=== PATIENT | male | born 1985 | race African-American/Black ===

== ENCOUNTER 2017-01-29 10:17 | Inpatient (IN) | payer OTHER ==
--- NOTE | 2017-01-29 10:59 | PDOC ---
Attending Attestation - Resident Resident Name: Coretta Rico - ED Attending Attestation I have performed the following: I have examined & evaluated the patient, The case was reviewed & discussed with the resident, I agree w/resident's findings & plan, Exceptions are as noted - HPI HPI: 01/29/17 11:41 31y M hx of IVDU/heroin use, ?autoimmune hepatic disease, PBC presents with generalized body pain requesting heroin detox, last use was yesterday. Pt denies any n/v, fever/chills, diarrhea, chest pain, sob, cough. GENERAL: The patient is awake, alert, and fully oriented, Nontoxic - in no acute distress. HEAD: Normocephalic, atraumatic. EYES: extraocular movements intact, sclera icteric, conjunctiva clear. ENT: Normal voice, dry mucous membranes. NECK: Normal range of motion, supple LUNGS: Breath sounds equal, clear to auscultation bilaterally. No wheezes, no rhonchi, no rales. HEART: Regular rate and rhythm, normal S1 and S2 without murmur, rub or gallop. ABDOMEN: Soft, nontender, normoactive bowel sounds. No guarding, no rebound. . No CVA tenderness EXTREMITIES: Normal range of motion, no edema. NEUROLOGICAL: No facial assymetry, Normal speech, moving all 4 extremities spontaneously and symmetrically PSYCH: Normal mood, normal affect. SKIN: Warm, Dry, normal turgor, as pt is jaundiced, will check cbc/cmp to eval his liver function if neg will dc to detox 01/29/17 15:45 pts labs reviewed noted for significantly elevated bilirubin/lfts case wa d/w Dr Munoz who recommended transfer to [facility] or tertiary center, however transfer was declined as it was felt workup could be initiated at [facility]. The pt will be admitted for further management and stabilization of his autoimmune hepatitis and PBC stable for med surg admission - Physicial Exam PE: 01/31/17 16:20 see above - Medical Decision Making 01/31/17 16:20 see above
[2017-01-29 11:03] LABS: URINE APPEARANCE SLCLOUDY; URINE BLOOD NEGATIVE (NEGATIVE); URINE COLOR AMBER; URINE GLUCOSE (UA) NEGATIVE (NEGATIVE); URINE KETONE NEGATIVE (NEGATIVE); URINE LEUK ESTERASE NEGATIVE (NEGATIVE); URINE NITRITE NEGATIVE (NEGATIVE); URINE PROTEIN NEGATIVE (NEGATIVE); URINE UROBILINOGEN 4.0 E.U/dl mg/dL (0.2-1.0)
[2017-01-29 11:10] LABS: URINE MARIJUANA THC NEGATIVE ng/ml (CUTOFF=50)
--- NOTE | 2017-01-29 12:48 | PDOC ---
History of Present Illness - General Chief Complaint: Substance Abuse Stated Complaint: DETOX Time Seen by Provider: 01/29/17 10:24 History Source: Patient - History of Present Illness Initial Comments: 01/29/17 12:45 CC: Heroin Withdrawal Patient is a 31 y.o. male with a PMH of HTN, Primary Biliary Cirrhosis and Auto Immune Hepatitis who presents to our ED today c/o of heroin withdrawal and requesting admission to a rehabilitation facility. Patient states he last used heroin early this morning and he usually injects in his arms bilaterally. Patient denies any SiSx of heroin withdrawal including nausea, diaphoresis, abdominal pain or muscle spasms. Patient states he takes Lisinopril and Ursodiol daily however cannot recall the dosages or name the physician who prescribes these medications for him. Past History - Past Medical History Allergies/Adverse Reactions: Allergies Allergy/AdvReac Type Severity Reaction Status Date / Time No Known Allergies Allergy Verified 01/29/17 10:33 Home Medications: Ambulatory Orders Ursodiol 600 mg PO DAILY 01/29/17 HTN: Yes Liver Disease: Yes (auto immune hepatitis) Other medical history: drug abuse heroin - Psycho/Social/Smoking Cessation Hx Anxiety: No Suicidal Ideation: No Smoking History: Never smoked Have you smoked in the past 12 months: No Information on smoking cessation initiated: No Hx Alcohol Use: No Drug/Substance Use Hx: Yes (heroin) Substance Use Type: None Review of Systems - Review of Systems Constitutional: No: Chills, Diaphoresis HEENTM: No: Blurred Vision, Double Vision, Tinnitus, Throat Pain Respiratory: No: Cough, Orthopnea, Shortness of Breath, Wheezing Cardiac (ROS): No: Chest Pain, Lightheadedness, Palpitations ABD/GI: No: Constipated, Diarrhea, Nausea, Vomiting : No: Burning, Dysuria Neurological: No: Headache, Numbness, Tingling, Weakness Psychiatric: No: Anxiety, Depression All Other Systems: Reviewed and Negative *Physical Exam - Vital Signs Last Vital Signs Temp Pulse Resp BP Pulse Ox 98.0 F 82 18 159/96 100 01/29/17 10:19 01/29/17 10:19 01/29/17 10:19 01/29/17 10:19 01/29/17 10:19 - Physical Exam General Appearance: Yes: Nourished, Appropriately Dressed HEENT: positive: Scleral Icterus (R), Scleral Icterus (L), Other Neck: positive: Tender, Supple Respiratory/Chest: positive: Lungs Clear, Normal Breath Sounds Cardiovascular: positive: Regular Rhythm, Regular Rate, S1, S2 Gastrointestinal/Abdominal: positive: Soft Integumentary: positive: Normal Color, Dry, Warm, Other (Last site of heroin insertion on RUE shows ) Neurologic: positive: Fully Oriented, Alert ED Treatment Course - LABORATORY CBC & Chemistry Diagram: 01/29/17 13:23 01/29/17 12:00 - ADDITIONAL ORDERS Additional order review: Laboratory Results 01/29/17 01/29/17 01/29/17 11:42 10:39 10:39 Sodium Cancelled Potassium Cancelled Chloride Cancelled Carbon Dioxide Cancelled Anion Gap Cancelled BUN Cancelled Creatinine Cancelled Creat Clearance w eGFR Cancelled Random Glucose Cancelled Calcium Cancelled Total Bilirubin Cancelled AST Cancelled ALT Cancelled Alkaline Phosphatase Cancelled Total Protein Cancelled Albumin Cancelled Urine Color Jenae Urine Appearance Slcloudy Urine pH 5.0 Urine Protein Negative Urine Glucose (UA) Negative Urine Ketones Negative Urine Blood Negative Urine Nitrite Negative Urine Bilirubin 4.0 Urine Urobilinogen 4.0 e.u/dl Ur Leukocyte Esterase Negative Opiates Screen Positive Methadone Screen Negative Barbiturate Screen Negative Phencyclidine Screen Negative Ur Amphetamines Screen Negative MDMA (Ecstasy) Screen Negative Benzodiazepines Screen Negative Cocaine Screen Negative U Marijuana (THC) Screen Negative 01/29/17 11:42 RBC Cancelled MCV Cancelled MCHC Cancelled RDW Cancelled MPV Cancelled Medical Decision Making - Medical Decision Making 01/29/17 13:15 Patient is a 31 y.o. male with a PMH of PBC, Auto Immune Hepatitis, and Heroin Intoxication who presents to our ED today seeking admission to a rehabilitation facility for Heroin Addition Treatment. On PE, patient's BP is elevated and he has mild scleral icterus B/L. Gastroenterology consult (Dr. Lopez) recommended transfer to [facility] following CMP that showed hyperbilirubinemia (Total 13.0, Direct 10.9) however given that patient had admitted to recent heroin use and presented to our facility seeking admission to detox, patient was refused. Patient was admitted to inpatient medicine service under Dr. Mackenzie. *DC/Admit/Observation/Transfer Diagnosis at time of Disposition: Elevated bilirubin - Discharge Dispostion Condition at time of disposition: Good Admit: Yes - Attestations Physician Attestion: 01/29/17 15:50 I, Dr. Coretta Rico, attest that this document has been prepared under my direction and personally reviewed by me in its entirety. I further attest, that it accurately reflects all work, treatment, procedures and medical decision -making performed by me.
[2017-01-29 12:56] LABS: HIV 1 & 2 AB NEGATIVE; HIV 1 AGp24 NEGATIVE
[2017-01-29 13:09] LABS: ALBUMIN 2.1 g/dl (3.4-5.0); ALK PHOS 822 U/L (45-117); ANION GAP 6 (8-16); CO2 25 mmol/L (21-32); CREATININE 0.9 mg/dL (0.7-1.3); GLUCOSE,RANDOM 89 mg/dL (74-106); SGPT/ALT 130 U/L (12-78); TOT PROT 5.9 g/dl (6.4-8.2)
[2017-01-29 13:21] LABS: BILIRUBIN,DIRECT 10.9 mg/dL (0.0-0.2); SGOT/AST 144 U/L (15-37)
[2017-01-29 14:05] LABS: MCH 28.7 pg (25.7-33.7); MCHC 34.1 g/dl (32.0-35.9); MEAN PLT VOLUME 8.9 fl (7.5-11.1); PLATELET COUNT 288 K/MM3 (134-434); RDW 14.6 % (11.9-15.9); WHITE BLOOD COUNT 7.3 K/mm3 (4.0-10.0)
[2017-01-29] MEDS ORDERED: POTASSIUM CHLORIDE TABS 20 MEQ TABLET.ER (FP) PO ONE (17:09)
[2017-01-29] MEDS ORDERED: POTASSIUM CHLORIDE ORAL LIQUID 20 MEQ/15 ML ONE (17:15)
[2017-01-29 18:59] VITALS: BMI 28.2
[2017-01-29] MEDS: KETOROLAC TROMETHAMINE 30 MG/1 ML VIAL IVPB PRN (20:38)
[2017-01-29 20:48] LABS: PLATELET COMMENT2 NO CLOTTING DETECTED; PLATELET COMMENT3 FEW LARGE PLTS
[2017-01-29 20:50] LABS: ANISOCYTOSIS 1+; HYPOCHROMIA 1+
[2017-01-29] MEDS ORDERED: KETOROLAC TROMETHAMINE 30 MG/1 ML VIAL IM PRN (20:56)
[2017-01-29] MEDS ORDERED: ONDANSETRON 4 MG/2 ML VIAL IVPUSH PRN (21:00)
[2017-01-29] MEDS: URSODIOL 300 MG CAPSULE PO SCH (23:04)
[2017-01-29] MEDS: DEXTROSE 5%-0.45% SALINE 1,000 ML IV SCH (23:04)
[2017-01-29] MEDS: HEPARIN NA (PORCINE) 5,000 UNITS/ML 1ML VIAL SQ SCH (23:05)
[2017-01-30] MEDS: KETOROLAC TROMETHAMINE 30 MG/1 ML VIAL IVPB PRN ×3 (02:41→19:00)
[2017-01-30] MEDS ORDERED: PT OWN MED DRAWER 7, Y5N ONE (09:02)
[2017-01-30] MEDS: URSODIOL 300 MG CAPSULE PO SCH (09:17)
[2017-01-30] MEDS: HEPARIN NA (PORCINE) 5,000 UNITS/ML 1ML VIAL SQ SCH ×2 (09:22→22:18)
[2017-01-30 09:40] LABS: ANION GAP 7 (8-16); CALCIUM 8.9 mg/dL (8.5-10.1); CO2 26 mmol/L (21-32); GLUCOSE,RANDOM 105 mg/dL (74-106); SGOT/AST 135 U/L (15-37); SGPT/ALT 135 U/L (12-78)
[2017-01-30 09:41] LABS: MCH 28.8 pg (25.7-33.7); MCHC 34.1 g/dl (32.0-35.9); MEAN CELL VOLUME 84.7 fl (80-96); PLATELET COUNT 288 K/MM3 (134-434); RDW 14.9 % (11.9-15.9); WHITE BLOOD COUNT 5.5 K/mm3 (4.0-10.0)
[2017-01-30 09:42] LABS: ALK PHOS 873 U/L (45-117); BILIRUBIN,TOTAL 13.5 mg/dL (0.2-1.0); CREATININE 0.9 mg/dL (0.7-1.3)
[2017-01-30 12:26] LABS: PLATELET ESTIMATE ADEQUATE
--- NOTE | 2017-01-30 14:19 | CONSULT ---
Consult Detox [facility] Reason for Current Admission/Consult: Heroin detox Referred by:: Nina Mackenzie MD - History History of Present Illness: 31 y/o man with hx. of heroin dependence is admitted because abnormal liver enzymes. He has a hx. of autoimmune hepatitis. - History Source History Provided By: Patient, Medical Record Limitations to Obtaining History: No Limitations - Alcohol/Substance Use Hx Alcohol Use: No - Current Drug/Alcohol Use Heroin Route: Injection Age of first use: 29 Date of Last Use: 01/29/17 COWS - Scale Resting Pulse: 0= [place] 80 or Below Sweatin= Chills/Flushing Restless Observation: 1= Difficult to Sit Still Pupil Size: 0= Normal to Room Light Bone or Joint Aches: 1= Mild Discomfort Runny Nose/ Eye Tearin= None GI Upset > 30mins: 1= Stomach Cramp Tremor Observation: 1= Tremor [place], Not Seen Yawning Observation: 0= None Anxiety or Irritability: 2=Irritable/Anxious Goose Flesh Skin: 0=Smooth Skin COWS Score: 7 Assessment Plan - Diagnosis (1) Opioid dependence with withdrawal Status: Acute (2) Autoimmune hepatitis Status: Acute - Medication Detox Regimen/Protocol: Methadone
[2017-01-30] MEDS ORDERED: METHADONE HCL 5 MG TABLET PO ONE (14:30)
--- NOTE | 2017-01-30 15:17 | HP ---
Admitting History and Physical - Smoking History Smoking history: Never smoked Have you smoked in the past 12 months: No - Alcohol/Substance Use Hx Alcohol Use: No Home Medications - Allergies Allergies/Adverse Reactions: Allergies Allergy/AdvReac Type Severity Reaction Status Date / Time No Known Allergies Allergy Verified 01/29/17 10:33 - Home Medications Home Medications: Ambulatory Orders Ursodiol 600 mg PO DAILY 01/29/17 Physical Examination Vital Signs: Vital Signs Temperature 98.3 F 01/30/17 06:00 Pulse Rate 72 01/30/17 09:45 Respiratory Rate 18 01/30/17 09:45 Blood Pressure 160/88 01/30/17 09:45 O2 Sat by Pulse Oximetry (%) 100 01/30/17 09:00 Labs: CBC, BMP 01/30/17 08:30 01/30/17 08:30
[2017-01-30] MEDS: DEXTROSE 5%-0.45% SALINE 1,000 ML IV SCH (18:00)
--- NOTE | 2017-01-30 20:04 | CON.GI ---
Consult Consult Specialty:: GI Reason for Consultation:: Elevated LFT's - History of Present Illness Chief Complaint: Heroin withdrawl History of Present Illness: 31 M with h/o substance abuse, purportedly with h/o PBC and AIH, admitted with heroin withdrawl symptoms. Noted to have markedly elevated LFT's on admission with t bili of 13 now 24 hours later 13.5. He has a purported history of PBC and AIH. He has clearly been neglecting himself and has not taken his meds regularly. He is taking ursodiol which suggests he does have PBC. He states he was diagnosed in [place] but doesn't know the name of his doctor. - History Source History Provided By: Patient, Medical Record Limitations to Obtaining History: Clinical Condition - Alcohol/Substance Use Hx Alcohol Use: No - Smoking History Smoking history: Never smoked Have you smoked in the past 12 months: No Home Medications - Allergies Allergies/Adverse Reactions: Allergies Allergy/AdvReac Type Severity Reaction Status Date / Time No Known Allergies Allergy Verified 01/29/17 10:33 - Home Medications Home Medications: Ambulatory Orders Ursodiol 600 mg PO DAILY 01/29/17 Physical Exam-GI Vital Signs: Vital Signs Temperature 98.3 F 01/30/17 15:54 Pulse Rate 68 01/30/17 15:54 Respiratory Rate 18 01/30/17 15:54 Blood Pressure 151/92 01/30/17 15:54 O2 Sat by Pulse Oximetry (%) 100 01/30/17 09:00 Constitutional: Yes: Well Nourished, Anxious HENT: Yes: Normocephalic Neck: Yes: Supple Cardiovascular: Yes: Regular Rate and Rhythm Respiratory: Yes: CTA Bilaterally Gastrointestinal Inspection: Yes: WNL ...Auscultate: Yes: Normoactive Bowel Sounds ...Palpate: Yes: Soft. No: Tenderness Labs: CBC, BMP 01/30/17 08:30 01/30/17 08:30 Imaging - Results Ultrasound: Report Reviewed (hepatomegaly) Assessment/Plan 31 M with above history now with markedly elevated t bili and h/o PBC/AIH I discussed the situation with him and he tells me that he is signing out AMA I carefully explained the possible consequences of leaving am and explained that we would likely be transferring him to [facility] but he insists that he will go to see his family first and then go to [facility]. Planning on leaving tonight Management plan pending his disposition in the AM (likely trasfer to [facility] for impending liver failure.)
[2017-01-30] MEDS ORDERED: POTASSIUM CHLORIDE TABS 20 MEQ TABLET.ER (FP) PO STA (20:29)
[2017-01-30 22:14] LABS: INR 1.28 (0.82-1.09); PROTHROMBIN TIME (PATIENT) 14.1 SEC (9.98-11.88)
[2017-01-30 22:53] VITALS: BP 156/100; PULSE 64; TEMP 98.8
--- NOTE | 2017-01-31 08:42 | CONS ---
GASTROENTEROLOGY CONSULTATION DATE OF CONSULTATION: 01/30/2017 I was asked by Dr. Nuria Mackenzie to evaluate the patient for liver disease. HISTORY OF PRESENT ILLNESS: The patient is a 31-year-old gentleman who comes from [place], [place]. He can elicit his medical history. He is not exact on all the details. His girlfriend is at the bedside and is providing some of the additional details to his history. He tells me that he has longstanding history of hypertension, and he takes lisinopril/hydrochlorothiazide. In addition, he states that 3 years ago, he was found to have autoimmune liver disease as well as PBC (primary biliary cholangitis). The patient tells me that he has been maintained on azathioprine and prednisone as well as ursodeoxycholic acid. He is not certain his dosage. He tells me he has been compliant with medication and was using prednisone up until 2 or 3 days ago. He tells me that the diagnosis was made by liver biopsy a couple years ago and that he has been following up in the hospital in [place], [place]. He has now been in [place] for 3 weeks, and apparently, he was having some pain, lethargy, and not feeling well. At the same time, he has been shooting up heroine on a regular basis. He has longstanding history of drug abuse. He does not drink alcohol. He is quitting smoking, and he uses methamphetamine. The patient tells me that he was shot up up until approximately 2 days ago. He went to detoxification to try to admit himself for detoxification, and he was noted to have very abnormal lab data with a bilirubin of 13 and was sent to the hospital for evaluation. He is admitted at this time. The patient denies significant nausea, vomiting, abdominal pain, change in bowel habits, loss of appetite, rectal bleeding, tarry stools. He denies a family history of liver disease. The patient has had some malaise of recent. Other than that, he is not on any new medication. He has not been taking Tylenol, and it is noted that the patient denies having prior surgery or any drug allergies. He tells me that he has no other medical history, and his medications apparently the doses appear to be Fei 600 mg b.i.d., prednisone 30 mg daily, lisinopril/hydrochlorothiazide 20/12.5 daily, oxycodone 5 mg p.r.n., Ativan 1 mg p.r.n., and he used to be on azathioprine. It is unclear how long he has been off of that medication. PHYSICAL EXAMINATION: Vital Signs: Currently, his vital signs are completely stable. He is afebrile. General: He is a tall gentleman who is in no acute distress. HEENT: His sclerae are icteric. He appears jaundiced. His dentition is poor. His mouth is dry. Neck: Supple. Heart: Regular. Abdomen: Has bowel sounds. It is soft. There is tenderness to palpation in the right upper quadrant. There are no masses, rebound, or guarding. He does appear to have an enlarged liver on physical exam. Skin: He has tattoos on his chest. DIAGNOSTIC DATA: In terms of his test results, his CT scan of the abdomen and pelvis reveals marked hepatosplenomegaly without any evidence of bile duct obstruction or pancreatic mass. There are no obvious varices noted on the exam. The patient just has a significantly enlarged spleen and a very enlarged liver. There are no obvious masses detected. Of significant lab data, on admission, his alkaline phosphatase was 800. His total bilirubin was 13.0 with a direct of 10. In addition, his AST and ALT were in the 130s. IMPRESSION: Thus, it is my impression that the patient is a 31-year-old gentleman who by his report has a past medical history of autoimmune hepatitis as well as primary biliary cholangitis and had been on prednisone and ursodeoxycholic acid. It is unclear the extent of his disease and prior workup. Most of his history comes from his girlfriend. However, the patient comes in with lab data that is extremely concerning. He has a bilirubin that is 13, and he has evidence of significant chronic liver disease. He does not appear to be in acute liver failure, but we need to check an INR as the first step as that has not been checked. He is going to need to have some vitamin K. I would certainly recommend stopping the nonsteroidals, the tramadol that he is on. In addition, I would try to limit his pain medication. At the present time, he does not appear to be encephalopathic, but the concern is that his elevated bilirubin is out of proportion to what appears to be his disease of autoimmune hepatitis and primary biliary cholangitis, raising concern of possible infection. Certainly, he needs to have blood cultures. He needs to have blood work to rule out acute hepatitis A, B, and C. I would not restart prednisone until these things have been ruled out as he has been shooting drugs. If he is hepatitis B positive, then we need to exclude hepatitis delta as well. The patient needs to be closely watched. I have contacted a liver transplant center and spoken with Dr. Hendricks, the transplant physician, who feels at this time, we need to rule out infection. We need to observe this gentleman. If he starts to show signs of further deterioration with hepatic encephalopathy or bleeding or other issues, then we will need to consider transfer to a transplant service. Otherwise, at this time, it is Thursday evening, and they are not willing to accept the patient on a transfer as he has shot up drugs as recent as 2 days ago. He is not a candidate for an acute liver transplant due to that fact, and we have discussed that in detail. Thus, once stabilized, the patient will need to follow up with a transplant center, he will need to detoxification from drugs, and he will need to have regular followups for this condition. It appears that he has advanced, decompensated disease, and his ultimate prognosis right now is extremely limited. We will continue to follow his blood work over the weekend while in the hospital, and again, we will take every effort to rule out infection and we will watch for evidence of onset of liver decompensation and acute liver failure. We will continue to be available to aid in the management of this patient. I have discussed the findings with Dr. Hendricks at [facility] and with the medical doctor, Dr. Mackenzie. BALDEMAR IVY M.D. [id number]
[2017-01-31] MEDS ORDERED: lamoTRIgine 100 MG TABLET (FP) PO SCH (10:00)
[2017-01-31] MEDS ORDERED: METHADONE HCL 10 MG TABLET PO ONE (10:00)
[2017-02-01] MEDS ORDERED: METHADONE HCL 5 MG TABLET PO ONE (10:00)
--- NOTE | 2017-02-03 13:51 | EKG ---
Test Reason : Blood Pressure : / mmHG Vent. Rate : 072 BPM Atrial Rate : 072 BPM P-R Int : 160 ms QRS Dur : 120 ms QT Int : 420 ms P-R-T Axes : 058 -53 032 degrees QTc Int : 459 ms NORMAL SINUS RHYTHM LEFT ANTERIOR FASCICULAR BLOCK RIGHT ATRIAL ABNORMALITY SLOW R WAVE PROGRESSION V1-V3 NO PREVIOUS ECGS AVAILABLE REPEAT EKG IF CLINICALLY INDICATED Confirmed by ARIADNA SOLITARIO MD ([id number]) on 02/03/2017 1:51:16 PM Referred By: Confirmed By:ARIADNA SOLITARIO MD
== END 2017-01-30 23:05 | disposition left against medical advice (07) | DRG 279 ==
LOC: JER 10:17 → JERBED 15:50 → J5S 18:07
PROVIDERS: ADMIT Internal Medicine; ATTEND Internal Medicine
DX: K72.90 Hepatic failure, unspecified without coma (principal); F11.23 Opioid dependence with withdrawal; K74.69 Other cirrhosis of liver; K75.4 Autoimmune hepatitis; R16.0 Hepatomegaly, not elsewhere classified; I10 Essential (primary) hypertension
CPT/HCPCS: 36415; 71010-TC; 74178-TC; 76705-TC; 80053; 80307; 81003; 82248; 85025; 85610; 87040; 87389; 93005; 93010; 99283-25; J1644; Q9967

== ENCOUNTER 2017-05-29 22:52 | Inpatient (IN) | payer OTHER ==
--- NOTE | 2017-05-29 23:23 | PDOC ---
History of Present Illness - General Chief Complaint: Pain Stated Complaint: PAIN Time Seen by Provider: 05/29/17 23:22 History Source: Patient Exam Limitations: No Limitations - History of Present Illness Initial Comments: 05/30/17 00:35 Pt. is a 31 y/o M with PMH of schizoeffective disorder, who presents to the ED c /o R side pain. Patient states that his pain began approximately 3 days ago and has gotten consecutively worse over the past 3 days. He states that the pain is colicky in nature. He has not tried any medication to help with his pain. Admits to frequency, dysuria, hematuria. Denies fevers, chills, shortness of breath no chest pain, palpitations, nausea, vomiting, diarrhea. Pt. does not have a primary care doctor. Denies any abdominal surgeries. Denies alcohol, IV drug use. Past History - Travel Traveled outside of the country in the last 30 days: No Close contact w/someone who was outside of country & ill: No - Past Medical History Allergies/Adverse Reactions: Allergies Allergy/AdvReac Type Severity Reaction Status Date / Time No Known Allergies Allergy Verified 05/29/17 23:21 Home Medications: Ambulatory Orders Ursodiol 600 mg PO DAILY 01/29/17 HTN: Yes Liver Disease: Yes (auto immune hepatitis) - Suicide/Smoking/Psychosocial Hx Smoking History: Never smoked Have you smoked in the past 12 months: No Information on smoking cessation initiated: No Hx Alcohol Use: No Drug/Substance Use Hx: No Substance Use Type: None Review of Systems - Review of Systems Able to Perform ROS?: Yes Comments:: 05/30/17 00:37 CONSTITUTIONAL: Absent: fever, chills, diaphoresis, generalized weakness, malaise, loss of appetite HEENT: Absent: rhinorrhea, nasal congestion, throat pain, throat swelling, difficulty swallowing, mouth swelling, ear pain, eye pain, visual Changes CARDIOVASCULAR: Absent: chest pain, loss of consciousness, palpitations, irregular heart rate, peripheral edema RESPIRATORY: Absent: cough, shortness of breath, dyspnea with exertion, orthopnea, wheezing, stridor, hemoptysis GASTROINTESTINAL: Present: RUQ pain Absent: abdominal pain, abdominal distension, nausea, vomiting , diarrhea, constipation, melena, hematochezia GENITOURINARY: Present: dysuria, frequency, urgency, R flank pain. hematuria Absent: hesitancy , genital pain MUSCULOSKELETAL: Absent: myalgia, arthralgia, joint swelling SKIN: Absent: rash, itching, pallor HEMATOLOGIC/IMMUNOLOGIC: Absent: easy bleeding, easy bruising, lymphadenopathy, frequent infections ENDOCRINE: Absent: unexplained weight gain, unexplained weight loss, heat intolerance, cold intolerance NEUROLOGIC: Absent: headache, focal weakness or paresthesias, dizziness, unsteady gait, seizure, mental status changes, bladder or bowel incontinence PSYCHIATRIC: Absent: anxiety, depression, suicidal or homicidal ideation, hallucinations. Is the patient limited [place] proficient: No *Physical Exam - Vital Signs Last Vital Signs Temp Pulse Resp BP Pulse Ox 98.8 F 74 18 157/100 100 05/29/17 23:21 05/29/17 23:21 05/29/17 23:21 05/29/17 23:21 05/29/17 23:21 - Physical Exam Comments: 05/30/17 00:39 GENERAL: Well developed, well nourished. Awake and alert. No acute distress. HEENT: Normocephalic, atraumatic. PERRLA, EOMI. No conjunctival pallor. Sclera are icteric. Moist mucous membranes. Oropharynx is clear. NECK: Supple. Full ROM. No JVD. Carotid pulses 2+ and symmetric, without bruits. No thyromegaly. No lymphadenopathy. CARDIOVASCULAR: Regular rate and rhythm. No murmurs, rubs, or gallops. Distal pulses are 2+ and symmetric. PULMONARY: No evidence of respiratory distress. Lungs clear to auscultation bilaterally. No wheezing, rales or rhonchi. ABDOMINAL: TTP RUQ. (+) Jaime sign. Soft. Non-distended. No rebound or guarding. No organomegaly. Normoactive bowel sounds. MUSCULOSKELETAL Normal range of motion at all joints. No bony deformities or tenderness. R sided CVA tenderness. EXTREMITIES: No cyanosis. No clubbing. No edema. No calf tenderness. SKIN: Warm and dry. Normal capillary refill. No rashes. No jaundice. NEUROLOGICAL: Alert, awake, appropriate. Cranial nerves 2-12 intact. No deficits to light touch and temperature in face, upper extremities and lower extremities. No motor deficits in the in face, upper extremities and lower extremities. Normoreflexic in the upper and lower extremities. Normal speech. Toes are down- going bilaterally. Gait is normal without ataxia. PSYCHIATRIC: Cooperative. Good eye contact. Appropriate mood and affect. ED Treatment Course - LABORATORY CBC & Chemistry Diagram: 05/29/17 23:45 05/30/17 04:11 Medical Decision Making - Medical Decision Making 05/30/17 00:04 Pt. is a 31 y/o M with PMH of schizoaffective disorder, who presents to the ED with 3 days of RUQ pain/R flank pain and dark urine. Exam with significant tenderness to the RUQ, (+) CVA tenderness to the R. Sclera icteric on exam. DDx includes but is not limited to cholecystitis, choledocholithaisis, cholangitis, pancreatitis, kidney stone, UTI, hepatic disorders, rhadomyolosis. 1. CBC, CMP, Acetone, PT/INR, UA/UC, 2. CT spiral, RUQ us 3. IVF, NS, Zofran 4ml, IV morphine Pt. states he does not drink alcohol and he does not use drugs. 05/30/17 01:39 Potassium L at 2.4. Will begin replacement at this time. 60meq ordered orally, 2 10meq IV riders. Bilirubin grossly elevated to 24. AST 177, ALT 105, alkaline phosphatase 668, ammonia 46.3. PT/INR grossly elevated. Suspect liver failure at this time. CK, Troponin WNL. EKG: NSR rate in 60's, No acute ST-T wave changes. 05/30/17 04:21 CT: Hepatopleanomegaly present. No acute appendicitis, pancreatitis, renal stones. Abdomen Sono: Fatty liver. No stones or pericholicystic fluid seen. Gall bladder wall non-thickened. Given no source on imaging for pt. elevated bili/liver failure will add tylenol level, urine toxicology at this time, hepatitis panel. Pt. still c/o pain, will give another 2mg of IV morphine. Will question the pt. again about social history. Given lab work, will admit to [facility] at this time for hypokalemia, liver failure, elevated bili. Case discussed with Dr. Kennedy who accepts the pt to tele. VS stable at this time. Pt. afebrile. 05/30/17 04:41 Upon further questioning about drug history, pt states that he is an IV heroine user and last used heroine yesterday. Pt. states that he is now detoxing because he wanted to stop. Pt. chart queried and pt appeared with similar symptoms back in 01/29. *DC/Admit/Observation/Transfer Diagnosis at time of Disposition: Elevated bilirubin, Hypokalemia Liver failure Qualifiers: Liver failure chronicity: unspecified chronicity Hepatic coma status: without hepatic coma Qualified Code(s): K72.90 - Hepatic failure, unspecified without coma - Discharge Dispostion Condition at time of disposition: Guarded Admit: Yes - Referrals - Patient Instructions - Post Discharge Activity
[2017-05-29] MEDS ORDERED: morphine CARPU-JECT 2 MG/1 ML DISP.SYRIN IVPUSH ONE (23:36)
[2017-05-29] MEDS ORDERED: SODIUM CHLORIDE 1,000 ML IV STA (23:36)
--- NOTE | 2017-05-29 23:54 | PDOC ---
*Physical Exam - Vital Signs Last Vital Signs Temp Pulse Resp BP Pulse Ox 98.8 F 74 18 157/100 100 05/29/17 23:21 05/29/17 23:21 05/29/17 23:21 05/29/17 23:21 05/29/17 23:21 ED Treatment Course - LABORATORY CBC & Chemistry Diagram: 06/01/17 06:00 06/01/17 06:00 Medical Decision Making - Medical Decision Making 05/29/17 23:51 Pt seen by the Advanced Practice Provider under my direct supervision Pt interviewed and examined Ancillary studies reviewed I agree with plan as outlined by the Advanced Practice Provider JAREN Mann 31-year-old male with past medical history of schizoaffective disorder presents with 4 days of dark urine, right flank and right upper quadrant pain and jaundice. Patient denies any gallstones or gallbladder history. Differential includes choledocholithiasis, acute cholangitis, biliary colic, hepatic disorders causing hyperbilirubinemia, rhabdomyolysis. We'll obtain a right upper quadrant ultrasound, spiral CT, urinalysis, labs. Patient will most likely need to be admitted for further GI workup. 05/29/17 23:53 Physical Exam: +scleral icterus +R sided CVA tenderness +RUQ tenderness *DC/Admit/Observation/Transfer Diagnosis at time of Disposition: Elevated bilirubin, Liver failure, Hypokalemia - Discharge Dispostion Disposition: AGAINST MEDICAL ADVICE Condition at time of disposition: Guarded - Referrals - Patient Instructions - Post Discharge Activity
[2017-05-30] MEDS ORDERED: morphine SULFATE 4 MG/ML VIAL ONE (00:01)
[2017-05-30 00:02] LABS: URINE APPEARANCE CLEAR; URINE BLOOD NEGATIVE (NEGATIVE); URINE COLOR AMBER; URINE GLUCOSE (UA) NEGATIVE (NEGATIVE); URINE KETONE NEGATIVE (NEGATIVE); URINE LEUK ESTERASE NEGATIVE (NEGATIVE); URINE NITRITE NEGATIVE (NEGATIVE); URINE UROBILINOGEN 4.0 E.U/dl mg/dL (0.2-1.0)
[2017-05-30 00:11] LABS: URINE PROTEIN 1+ (NEGATIVE)
[2017-05-30 00:20] LABS: URINE BACTERIA FEW /hpf (NONE SEEN); URINE HYALINE CAST 4 /lpf; URINE RBC 2 /hpf (0-3); URINE WBC 2 /hpf (3-5)
[2017-05-30 00:20] LABS: BASO % 0.4 % (0-2.0); EOS % 0.9 % (0-4.5); MCH 29.9 pg (25.7-33.7); MCHC 34.6 g/dl (32.0-35.9); MEAN CELL VOLUME 86.2 fl (80-96); MEAN PLT VOLUME 7.6 fl (7.5-11.1); NEUT % 79.5 % (42.8-82.8); PLATELET COUNT 246 K/MM3 (134-434); WHITE BLOOD COUNT 6.5 K/mm3 (4.0-10.0)
[2017-05-30 00:33] LABS: INR 2.75 (0.82-1.09); PROTHROMBIN TIME (PATIENT) 31.1 SEC (9.98-11.88)
[2017-05-30 00:35] LABS: ACTIVATED PTT 40.2 SECONDS (26.9-34.4)
[2017-05-30 00:49] LABS: ANION GAP 12 (8-16); CALCIUM 8.5 mg/dL (8.5-10.1); CO2 23 mmol/L (21-32); CREATININE 1.1 mg/dL (0.7-1.3); GLUCOSE,RANDOM 63 mg/dL (74-106); SGOT/AST 177 U/L (15-37); SGPT/ALT 105 U/L (12-78)
[2017-05-30 01:03] LABS: ALK PHOS 668 U/L (45-117)
[2017-05-30 01:07] LABS: BILIRUBIN,TOTAL 23.9 mg/dL (0.2-1.0); TOT PROT 7.3 g/dl (6.4-8.2)
[2017-05-30] MEDS ORDERED: DEXTROSE 50%-WATER - 25 GM/50 ML VIAL IVPUSH ONE (01:16)
[2017-05-30] MEDS ORDERED: DEXTROSE 50%-WATER 25 GM/50 ML DISP.SYRIN ONE (02:15)
[2017-05-30] MEDS ORDERED: KCL 10 MEQ IVPB 10 MEQ/100 ML INFUS.BAG IVPB ONE (03:04)
[2017-05-30] MEDS ORDERED: POTASSIUM CHLORIDE TABS 20 MEQ TABLET.ER (FP) PO ONE ×3 (03:05→07:15)
[2017-05-30] MEDS ORDERED: POTASSIUM CHLORIDE ORAL LIQUID 20 MEQ/15 ML ONE (03:11)
[2017-05-30] MEDS: KCL 10 MEQ IVPB 10 MEQ/100 ML INFUS.BAG IVPB SCH ×2 (03:25→05:00)
[2017-05-30] MEDS: POTASSIUM CHLORIDE TABS 20 MEQ TABLET.ER (FP) PO ONE ×2 (03:26→03:45)
[2017-05-30] MEDS ORDERED: POTASSIUM CHLORIDE ORAL LIQUID 20 MEQ/15 ML PO ONE ×2 (03:51→14:42)
[2017-05-30] MEDS ORDERED: ONDANSETRON 4 MG/2 ML VIAL IVPUSH ONE (04:01)
[2017-05-30] MEDS ORDERED: morphine CARPU-JECT 2 MG/1 ML DISP.SYRIN IVPUSH ONE (04:03)
[2017-05-30] MEDS ORDERED: LACTULOSE 20 GM/30 ML UDC (FOR ORAL USE ONLY) PO ONE (04:14)
[2017-05-30] MEDS ORDERED: LACTULOSE 20 GM/30 ML UDC (FOR ORAL USE ONLY) ONE (04:54)
[2017-05-30 04:58] LABS: ALBUMIN 1.7 g/dl (3.4-5.0); ANION GAP 8 (8-16); CALCIUM 7.5 mg/dL (8.5-10.1); CO2 23 mmol/L (21-32); CREATININE 0.9 mg/dL (0.7-1.3); GLUCOSE,RANDOM 91 mg/dL (74-106); SGPT/ALT 97 U/L (12-78); URINE MARIJUANA THC NEGATIVE ng/ml (CUTOFF=50)
[2017-05-30] MEDS ORDERED: SODIUM CHLORIDE 1,000 ML IV SCH (05:00)
[2017-05-30 05:07] LABS: ALK PHOS 614 U/L (45-117)
[2017-05-30 05:08] LABS: SGOT/AST 172 U/L (15-37); TOT PROT 6.6 g/dl (6.4-8.2)
[2017-05-30 05:10] LABS: BILIRUBIN,TOTAL 21.5 mg/dL (0.2-1.0)
--- NOTE | 2017-05-30 06:25 | HP ---
CHIEF COMPLAINT: RUQ pain PCP: none HISTORY OF PRESENT ILLNESS: This is a 31 year old male with a unconfirmed history of autoimmune hepatitis, primary billiary cirrhosis and current heroin user,presents to the emergency room with complaints of RUQ sharp , intermittent abdominal pain that radiated to the right back. Denies alleviating or aggravating factors. Not effected by food. Progressively has gotten worse throughout the day which provoked him to come to the hospital. He denies fever, nausea, vomiting, diarrhea, constipation. Admits to some chills. He is [place] [facility]. Last heroin use was on , IV injection, uses both arms, quantity unknown. Of note patient states he was worked up in the past for similar symptoms, he claims to have been diagnosed with auto immune hepatitis/PBN in [place] called [facility]. Patient was seen here at [facility] in 01/2017l was supposed to be transferred to [facility] , but signed out AMA. Today, ER course notable for rise in total bilirubin to 24 (last recorded was 13 ). Elevated transaminases and INR. Hypokalemia of 2.4 on admission. Recent Travel: moved from [place] few months ago PAST MEDICAL HISTORY: Autoimmune hepatitis, hepatomegaly, PBC, PAST SURGICAL HISTORY: Social History: lived [place] Smoking:no Alcohol:no Drugs: heroin injects Family History: hypertension Allergies No Known Allergies Allergy (Verified 05/29/17 23:21) HOME MEDICATIONS: Home Medications Medication Instructions Recorded Ursodiol 600 mg PO DAILY 01/29/17 REVIEW OF SYSTEMS CONSTITUTIONAL: positive: : chills Absent: fever, chills, diaphoresis, generalized weakness, malaise, loss of appetite, weight change HEENT: Absent: rhinorrhea, nasal congestion, throat pain, throat swelling, difficulty swallowing, mouth swelling, ear pain, eye pain, visual changes CARDIOVASCULAR: Absent: chest pain, syncope, palpitations, irregular heart rate, lightheadedness , peripheral edema RESPIRATORY: Absent: cough, shortness of breath, dyspnea with exertion, orthopnea, wheezing, stridor, hemoptysis GASTROINTESTINAL: Positive: RUQ pain Absent: abdominal pain, abdominal distension, nausea, vomiting, diarrhea, constipation, melena, hematochezia GENITOURINARY: Absent: dysuria, frequency, urgency, hesitancy, hematuria, flank pain, genital pain MUSCULOSKELETAL: Absent: myalgia, arthralgia, joint swelling, back pain, neck pain SKIN: Absent: rash, itching, pallor HEMATOLOGIC/IMMUNOLOGIC: Absent: easy bleeding, easy bruising, lymphadenopathy, frequent infections ENDOCRINE: Absent: unexplained weight gain, unexplained weight loss, heat intolerance, cold intolerance NEUROLOGIC: Absent: headache, focal weakness or paresthesias, dizziness, unsteady gait, seizure, mental status changes, bladder or bowel incontinence PSYCHIATRIC: Absent: anxiety, depression, suicidal or homicidal ideation, hallucinations. PHYSICAL EXAMINATION Vital Signs - 24 hr 05/29/17 05/30/17 05/30/17 23:21 04:58 05:48 Temperature 98.8 F 99.0 F Pulse Rate 74 67 Respiratory 18 20 Rate Blood Pressure 157/100 149/52 O2 Sat by Pulse 100 96 Oximetry (%) GENERAL: Awake, alert, and fully oriented, in no acute distress. HEAD: Normal with no signs of trauma. EYES: Pupils equal, round and reactive to light, extraocular movements intact, sclera icteric, conjunctiva clear. No lid lag. EARS, NOSE, THROAT: Ears normal, nares patent, oropharynx clear without exudates. Moist mucous membranes. NECK: Normal range of motion, supple without lymphadenopathy, JVD, or masses. LUNGS: Breath sounds equal, clear to auscultation bilaterally. No wheezes, and no crackles. No accessory muscle use. HEART: Regular rate and rhythm, normal S1 and S2 with systolic murmur left sternal heart border, rub or gallop. ABDOMEN: Soft, tender/guarded, not distended, normoactive bowel sounds, no guarding, no rebound, no masses. No hepatomegaly or splenomegaly. MUSCULOSKELETAL: Normal range of motion at all joints. No bony deformities or tenderness. No CVA tenderness. UPPER EXTREMITIES: 2+ pulses, warm, well-perfused. No cyanosis. No clubbing. No peripheral edema. LOWER EXTREMITIES: 2+ pulses, warm, well-perfused. No calf tenderness. No peripheral edema. NEUROLOGICAL: Cranial nerves II-XII intact. Normal speech. 5/5 strength all muscles; sensation intact; reflexes wnl; PSYCHIATRIC: Cooperative. Good eye contact. Appropriate mood and affect. SKIN: Warm, very dry, normal turgor, no rashes or lesions noted, normal capillary refill. Laboratory Results - last 24 hr 05/29/17 05/29/17 05/29/17 23:44 23:45 23:45 WBC 6.5 RBC 3.32 L Hgb 9.9 L D Hct 28.6 L MCV 86.2 MCH 29.9 MCHC 34.6 RDW 16.0 H Plt Count 246 MPV 7.6 D Neutrophils % 79.5 Lymphocytes % 11.9 Monocytes % 7.3 Eosinophils % 0.9 Basophils % 0.4 PT with INR INR PTT (Actin FS) Sodium 135 L Potassium 2.4 L* D Chloride 100 Carbon Dioxide 23 Anion Gap 12 BUN 12 Creatinine 1.1 D Creat Clearance w eGFR > 60 Random Glucose 63 L D Calcium 8.5 Magnesium Total Bilirubin 23.9 H* D AST 177 H D ALT 105 H D Alkaline Phosphatase 668 H D Ammonia Creatine Kinase Total Protein 7.3 D Albumin 2.0 L Lipase Urine Color Jenae Urine Appearance Clear Urine pH 6.0 Ur Specific Holly 1.013 Urine Protein 1+ H Urine Glucose (UA) Negative Urine Ketones Negative Urine Blood Negative Urine Nitrite Negative Urine Bilirubin 4.0 Urine Urobilinogen 4.0 e.u/dl Urine WBC (Auto) 2 Urine RBC (Auto) 2 Ur Epithelial Cells Rare Urine Bacteria Few Hyaline Casts 4 Opiates Screen Methadone Screen Acetaminophen Barbiturate Screen Phencyclidine Screen Ur Amphetamines Screen MDMA (Ecstasy) Screen Benzodiazepines Screen Cocaine Screen U Marijuana (THC) Screen Alcohol, Quantitative 05/29/17 05/29/17 05/29/17 23:45 23:45 23:45 WBC RBC Hgb Hct MCV MCH MCHC RDW Plt Count MPV Neutrophils % Lymphocytes % Monocytes % Eosinophils % Basophils % PT with INR 31.10 H INR 2.75 H D PTT (Actin FS) 40.2 H Sodium Potassium Chloride Carbon Dioxide Anion Gap BUN Creatinine Creat Clearance w eGFR Random Glucose Calcium Magnesium Total Bilirubin AST ALT Alkaline Phosphatase Ammonia Creatine Kinase 47 Total Protein Albumin Lipase 293 Urine Color Urine Appearance Urine pH Ur Specific Holly Urine Protein Urine Glucose (UA) Urine Ketones Urine Blood Urine Nitrite Urine Bilirubin Urine Urobilinogen Urine WBC (Auto) Urine RBC (Auto) Ur Epithelial Cells Urine Bacteria Hyaline Casts Opiates Screen Methadone Screen Acetaminophen Barbiturate Screen Phencyclidine Screen Ur Amphetamines Screen MDMA (Ecstasy) Screen Benzodiazepines Screen Cocaine Screen U Marijuana (THC) Screen Alcohol, Quantitative 05/30/17 05/30/17 05/30/17 00:03 00:03 04:11 WBC RBC Hgb Hct MCV MCH MCHC RDW Plt Count MPV Neutrophils % Lymphocytes % Monocytes % Eosinophils % Basophils % PT with INR INR PTT (Actin FS) Sodium 135 L Potassium 2.8 L* Chloride 104 Carbon Dioxide 23 Anion Gap 8 BUN 10 Creatinine 0.9 Creat Clearance w eGFR > 60 Random Glucose 91 D Calcium 7.5 L Magnesium 2.0 Total Bilirubin 21.5 H* AST 172 H ALT 97 H Alkaline Phosphatase 614 H Ammonia 46.33 H Creatine Kinase Total Protein 6.6 Albumin 1.7 L Lipase Urine Color Urine Appearance Urine pH Ur Specific Holly Urine Protein Urine Glucose (UA) Urine Ketones Urine Blood Urine Nitrite Urine Bilirubin Urine Urobilinogen Urine WBC (Auto) Urine RBC (Auto) Ur Epithelial Cells Urine Bacteria Hyaline Casts Opiates Screen Methadone Screen Acetaminophen Barbiturate Screen Phencyclidine Screen Ur Amphetamines Screen MDMA (Ecstasy) Screen Benzodiazepines Screen Cocaine Screen U Marijuana (THC) Screen Alcohol, Quantitative < 5.0 05/30/17 05/30/17 04:11 04:11 WBC RBC Hgb Hct MCV MCH MCHC RDW Plt Count MPV Neutrophils % Lymphocytes % Monocytes % Eosinophils % Basophils % PT with INR INR PTT (Actin FS) Sodium Potassium Chloride Carbon Dioxide Anion Gap BUN Creatinine Creat Clearance w eGFR Random Glucose Calcium Magnesium Total Bilirubin AST ALT Alkaline Phosphatase Ammonia Creatine Kinase Total Protein Albumin Lipase Urine Color Urine Appearance Urine pH Ur Specific Holly Urine Protein Urine Glucose (UA) Urine Ketones Urine Blood Urine Nitrite Urine Bilirubin Urine Urobilinogen Urine WBC (Auto) Urine RBC (Auto) Ur Epithelial Cells Urine Bacteria Hyaline Casts Opiates Screen Positive Methadone Screen Negative Acetaminophen < 10 L Barbiturate Screen Negative Phencyclidine Screen Negative Ur Amphetamines Screen Negative MDMA (Ecstasy) Screen Negative Benzodiazepines Screen Negative Cocaine Screen Negative U Marijuana (THC) Screen Negative Alcohol, Quantitative ASSESSMENT/PLAN: This is a 31 year old male with a hx of autoimmune hepatitis and PBC who is a current heroin abuser, presented with RUQ pain. #RUQ pain secondary to acute on chronic liver failure due to autoimmune hepatitis vs PBC vs other etiology -hepatitis panel -hiv screen -anti mitochondrial antibodies -trend transaminases -acetaminophen level; alcohol negative -CT abdomen +hepatomegaly; -US evident for some gallbladder thickening; consider HIDA -GI consulted -f/u previous records; [facility] -MELD score 30; 19.6% est 3 month mortality #Hypokalemia: -K 2.4 on admission; recieved total of 60meq of K (oral and IV) brought up to 2, 8) -will give another 40meq po ; f/u k -ecg #Elevated INR secondary to liver failure: -will give one time vitamin K 5mg po -trend INR #hypertension: may be secondary to pain -pain control -monitor; may need to ass antihypertensive #anemia: -r/o hemolytic ; LDH hapto -no active signs of bleed -FOBT #IV heroin user: monitor for withdrawal -discuss if possible to start methadone: -f/u blood cultures/ echo to tr/o veg due to systolic murmur on exam; chills Fluids: hydrate NS IVF; was given dextrose in ER for hypoglycemia Currently npo pending GI eval do to pain DVT proph: scds Disposition: monitor on telemetry for low potassium Problem List - Problem (1) Elevated bilirubin Code(s): R17 - UNSPECIFIED JAUNDICE (2) Hypokalemia Code(s): E87.6 - HYPOKALEMIA (3) Liver failure Code(s): K72.90 - HEPATIC FAILURE, UNSPECIFIED WITHOUT COMA Qualifiers: Liver failure chronicity: unspecified chronicity Hepatic coma status: without hepatic coma Qualified Code(s): K72.90 - Hepatic failure, unspecified without coma (4) Autoimmune hepatitis Code(s): K75.4 - AUTOIMMUNE HEPATITIS (5) HTN (hypertension) Code(s): I10 - ESSENTIAL (PRIMARY) HYPERTENSION (6) Opioid dependence with withdrawal Code(s): F11.23 - OPIOID DEPENDENCE WITH WITHDRAWAL Visit type - Emergency Visit Emergency Visit: Yes ED Registration Date: 05/30/17 Care time: The patient presented to the Emergency Department on the above date and was hospitalized for further evaluation of their emergent condition. - New Patient This patient is new to me today: Yes Date on this admission: 05/30/17 - Critical Care Critical Care patient: No
[2017-05-30] MEDS ORDERED: PHYTONADIONE 5 MG TABLET PO ONE (06:34)
--- NOTE | 2017-05-30 06:40 | PN ---
Teaching Attending Note Name of Resident: Dianne [place] ATTENDING PHYSICIAN STATEMENT I saw and evaluated the patient. Chart, data,imaging reviewed I reviewed the resident's note and discussed the case with the resident. I agree with the resident's findings and plan as documented. SUBJECTIVE: 31 y/o M with PMH of schizoeffective disorder, c/o right flank/abdominal pain for the past 2 days. Denied any chills fevers, diarrhea, nausa, or vomiting. He recently moved to [place] from [place]. There, he reports following at GI clinic for autoimmune hepatitis. He is unsure which medications he was taking at that time. No family history of any liver disease. HE does admits to active IV drug abuse and his last use was 05/26. He injects into his upper extremities b/l. Denied any history of endocarditis or other infections form IVDA. Reports testing negative for HIV and hepatitis B and C recently. OBJECTIVE: Last Vital Signs Temp Pulse Resp BP Pulse Ox 99.4 F 68 22 141/86 96 05/30/17 06:00 05/30/17 06:00 05/30/17 06:00 05/30/17 06:00 05/30/17 05:48 General- irritable, NAD, appears nontoxic HEENT- icteric sclera b/l, sinuses nontender to palpation Neck -supple, no masses identified CV -s1+s2+ rrr, systolic murmur appreciated chest - lungs cta b/l abdomen- guarding appreciated, negative for rebound tenderness ext- no pitting edema Abnormal Lab Results 05/29/17 05/29/17 05/29/17 23:44 23:45 23:45 RBC 3.32 L Hgb 9.9 L D Hct 28.6 L RDW 16.0 H PT with INR INR PTT (Actin FS) Sodium 135 L Potassium 2.4 L* D Random Glucose 63 L D Calcium Total Bilirubin 23.9 H* D AST 177 H D ALT 105 H D Alkaline Phosphatase 668 H D Ammonia Albumin 2.0 L Urine Protein 1+ H Acetaminophen 05/29/17 05/30/17 05/30/17 23:45 00:03 04:11 RBC Hgb Hct RDW PT with INR 31.10 H INR 2.75 H D PTT (Actin FS) 40.2 H Sodium 135 L Potassium 2.8 L* Random Glucose Calcium 7.5 L Total Bilirubin 21.5 H* AST 172 H ALT 97 H Alkaline Phosphatase 614 H Ammonia 46.33 H Albumin 1.7 L Urine Protein Acetaminophen 05/30/17 04:11 RBC Hgb Hct RDW PT with INR INR PTT (Actin FS) Sodium Potassium Random Glucose Calcium Total Bilirubin AST ALT Alkaline Phosphatase Ammonia Albumin Urine Protein Acetaminophen < 10 L ASSESSMENT AND PLAN: #Hypokalemia - No ekg changes noted, s/p PO and IV supplementation in ER. Uncertain cause but differential includes poor PO intake. -admit to telemtry -supplement potassium PO -repeat potassium level #Acute on chronic hepatitis w/ concurrent hepatomegally, developing liver failure, markedly eleveted bilirubin- patient states history of autoimmune hepatitis and reports testing negative for hepatitis B and C. Patient not candidate for liver transplant at this time because of active IV drug abuse. Should r/o acute viral hepatitis, tylenol level. Liver imaging showed hepatosplenomegally and did not show any gallstones. -send hep A IgM, Hep B c ab, s Ab, s Ag -EtOH level -send antimitochondial ab -DANIEL -tylenol level -GI consult -call [facility] to obtain medical records #IVDA- patient counseled on IV drug use cessation -viral hepatitis panels -HIV serology -transthoracic echo to evaluate for vegetations -send blood cultures x2 if fever -DVT ppx - pt with elevated INR form liver failure -SCDs b/l #Diet- 2 g Na diet
[2017-05-30] MEDS ORDERED: PHYTONADIONE 5 MG TABLET ONE (07:16)
[2017-05-30 09:58] LABS: HIV 1 & 2 AB NEGATIVE; HIV 1 AGp24 NEGATIVE
[2017-05-30] MEDS: URSODIOL 300 MG CAPSULE PO SCH (10:57)
[2017-05-30 13:08] VITALS: BMI 22.4
[2017-05-30 13:18] LABS: URINE LEUK ESTERASE Negative (NEGATIVE)
--- NOTE | 2017-05-30 13:50 | HOSP ---
Subjective - Review of Symptoms Subjective: evaluated pt at bedside. resting comfortable. c/o RUQ pain that is constant. states he was diagnosed iwth autoimmune hepatitis in [place] with liver Bx and was on medications which he stopped a month ago after moving to [place] due to insurance issues. desires inpatient rehab for heroin addiction. denies CP, SOB< fever, chills, cough, N/V/C/D. requesting to eat. Current Medications Generic Name Dose Route Start Last Admin Trade Name Adrian PRN Reason Stop Dose Admin Sodium Chloride 1,000 mls @ 150 mls/hr 05/30/17 05:00 05/30/17 05:46 Normal Saline - IV 150 mls/hr ASDIR MILAGRO Administration Ursodiol 600 mg 05/30/17 10:00 05/30/17 10:57 Actigal - PO 600 mg DAILY MILAGRO Administration Last Vital Signs Temp Pulse Resp BP Pulse Ox 99.1 F 74 20 139/74 99 05/30/17 13:19 05/30/17 13:19 05/30/17 13:19 05/30/17 13:19 05/30/17 13:19 General NAD HEENT +jaundice CV S1 S2 RRR +murmur Lungs CTA B/L no wheeizng/rales/rhonchi Abdomen +distended Hepatospleenomegaly. no tenderness Extremtiies no pedal edema, no asterixis CBCD WBC 6.5 K/mm3 (4.0-10.0) 05/29/17 23:45 RBC 3.32 M/mm3 (4.00-5.60) L 05/29/17 23:45 Hgb 9.9 GM/dL (11.7-16.9) L D 05/29/17 23:45 Hct 28.6 % (35.4-49) L 05/29/17 23:45 MCV 86.2 fl (80-96) 05/29/17 23:45 MCHC 34.6 g/dl (32.0-35.9) 05/29/17 23:45 RDW 16.0 % (11.9-15.9) H 05/29/17 23:45 Plt Count 246 K/MM3 (134-434) 05/29/17 23:45 MPV 7.6 fl (7.5-11.1) D 05/29/17 23:45 CMP Sodium 135 mmol/L (136-145) L 05/30/17 04:11 Potassium 2.8 mmol/L (3.5-5.1) L* 05/30/17 04:11 Chloride 104 mmol/L (98-107) 05/30/17 04:11 Carbon Dioxide 23 mmol/L (21-32) 05/30/17 04:11 Anion Gap 8 (8-16) 05/30/17 04:11 BUN 10 mg/dL (7-18) 05/30/17 04:11 Creatinine 0.9 mg/dL (0.7-1.3) 05/30/17 04:11 Creat Clearance w eGFR > 60 (>60) 05/30/17 04:11 Calcium 7.5 mg/dL (8.5-10.1) L 05/30/17 04:11 Total Bilirubin 21.5 mg/dL (0.2-1.0) H* 05/30/17 04:11 AST 172 U/L (15-37) H 05/30/17 04:11 ALT 97 U/L (12-78) H 05/30/17 04:11 Alkaline Phosphatase 614 U/L (45-117) H 05/30/17 04:11 Total Protein 6.6 g/dl (6.4-8.2) 05/30/17 04:11 Albumin 1.7 g/dl (3.4-5.0) L 05/30/17 04:11 A/P 31yo M with PMH autoimmune hepatitis and schizoaffective disorder 1. Acute hepatitis- claims autoimmune etiology. MELD 30. Chid Castillo C. will need to obtain collateral labs from [place] where workup was done. check direct bili. autoimmune and hepatitis panel pending. consult GI 2. Continuous heroin abuse- COWS 0. no signs of withdrawal, no agitation, no yawning, no piloerection, no diarrhea and has desire to eat. do not believe he is withdrawing and no indication for detox as he is requesting. will refer to inpatient rehab when medically optimized. 3. Hypokalemia- repeat labs now. replete as needed. Mg level normal 4. + murmur- in setting of heroin use would check echo to r/o endocarditis 5. Hypercoagable state- s/p vitamin K level. monitor closely 6. Anemia- no signs of bleeding. check iron stuides. no indication for txn 7. DVT ppx- SCD. hold pharmacologic. Physical Examination Vital Signs: Vital Signs Temperature 99.1 F 05/30/17 13:19 Pulse Rate 74 05/30/17 13:19 Respiratory Rate 20 05/30/17 13:19 Blood Pressure 139/74 05/30/17 13:19 O2 Sat by Pulse Oximetry (%) 99 05/30/17 13:19 Labs: CBC, BMP 05/29/17 23:45 05/30/17 04:11
[2017-05-30 14:26] LABS: ANION GAP 8 (8-16); CALCIUM 7.9 mg/dL (8.5-10.1); CO2 22 mmol/L (21-32); GLUCOSE,RANDOM 107 mg/dL (74-106)
[2017-05-30 14:31] LABS: BILIRUBIN,DIRECT 18.9 mg/dL (0.0-0.2)
[2017-05-30] MEDS ORDERED: KCL 10 MEQ IVPB 10 MEQ/100 ML INFUS.BAG IVPB SCH (14:45)
[2017-05-30] MEDS ORDERED: POTASSIUM CHLORIDE 30 MEQ in SODIUM CHLORIDE 300 ML IVPB ONE (15:00)
[2017-05-30] MEDS ORDERED: KETOROLAC TROMETHAMINE 15 MG/ML VIAL IVPUSH ONE (15:40)
[2017-05-30] MEDS ORDERED: METHADONE HCL 10 MG TABLET PO ONE (22:06)
--- NOTE | 2017-05-30 22:19 | HOSP ---
Physical Examination Vital Signs: Vital Signs Temperature 98.4 F 05/30/17 18:00 Pulse Rate 63 05/30/17 18:00 Respiratory Rate 20 05/30/17 18:00 Blood Pressure 142/82 05/30/17 18:00 O2 Sat by Pulse Oximetry (%) 99 05/30/17 13:19 Constitutional: Yes: Well Nourished, Other (calmly watching tv when I walked in , became work-up and tearful while talking with me.) Eyes: Yes: PERRL, Other (mildly dilated pupils, however room was dark.) HENT: Yes: Atraumatic, Normocephalic Neck: Yes: Supple, Trachea Midline Cardiovascular: Yes: Regular Rate and Rhythm Respiratory: Yes: Regular, CTA Bilaterally Gastrointestinal: Yes: Soft, Tenderness (diffuse) Extremities: Yes: WNL Edema: No Neurological: Yes: Alert, Oriented Psychiatric: Yes: Agitated, Suicidal Ideation (reports voices are telling him to jump out the window) Labs: CBC, BMP 05/29/17 23:45 05/30/17 13:35 Hospitalist Encounter Assessment: Resident paged for 31M with PMH of autoimmune hepatitis, schizoaffective disorder, IVDA, requesting detox medication. Pt was calmly watching tv when I came in, but became worked-up and tearful during assessment. Pt endorses voices telling him to jump out the window. While securing a 1:1, resident waited in the room with pt and noticed that pt was able to calm himself down and continue watching tv. Pt requesting apple juice. COWS score 9: for pupil size, diffuse body discomfort, tears streaming down cheeks, stomach cramps, and anxiousness. 1:1 ordered Psych Consult Methadone 10mg Day Team to f/u. Visit type - Emergency Visit Emergency Visit: Yes ED Registration Date: 05/30/17 Care time: The patient presented to the Emergency Department on the above date and was hospitalized for further evaluation of their emergent condition. - New Patient This patient is new to me today: Yes Date on this admission: 05/30/17 - Critical Care Critical Care patient: No
[2017-05-31 09:09] LABS: BASO % 0.6 % (0-2.0); EOS % 0.9 % (0-4.5); MCH 29.3 pg (25.7-33.7); MCHC 33.6 g/dl (32.0-35.9); MEAN CELL VOLUME 87.1 fl (80-96); MEAN PLT VOLUME 7.8 fl (7.5-11.1); NEUT % 75.4 % (42.8-82.8); PLATELET COUNT 215 K/MM3 (134-434); RDW 16.3 % (11.9-15.9); WHITE BLOOD COUNT 5.1 K/mm3 (4.0-10.0)
[2017-05-31] MEDS: URSODIOL 300 MG CAPSULE PO SCH ×2 (09:17→23:33)
--- NOTE | 2017-05-31 09:25 | PN ---
Physical Exam: SUBJECTIVE: Patient seen and examined. Currently asymptomatic. COWS 2 for restlessness and pupil dilation. Pt states last night he had "auditory hallucinations" which he gets from time to time. He states that a male voice told him to take his own life. He endorses suicidal attempts in the past via overdose, but no actual attempts. Has been "admitted to every psych hospital in [place]". Abd pain has resolved. OBJECTIVE: Vital Signs Period Temp Pulse Resp BP Sys/Tomas Pulse Ox Last 24 Hr 98.2 F-99.1 F 63-88 18-20 139-149/74-86 99-100 GEN: AAOx3, NAD, flat affect, poor eye contact, restless with movements HEENT: Pupils are dilated but reactive, +scleral icterus CV: S1, S2, RRR LUNG: CTABL ABD: Soft, +hepatosplenomegaly, no TTP in all four quadrants MSK: No edema, no erythema, has multiple dark spots on legs NEURO: CN 2-12 intact, no sensation or MSK deficits Active Medications Generic Name Dose Route Start Last Admin Trade Name Freq PRN Reason Stop Dose Admin Ketorolac Tromethamine 15 mg 05/31/17 12:30 05/31/17 15:18 Toradol Injection - IVPUSH 06/05/17 12:29 15 mg Q6H PRN Administration PAIN Lorazepam 1 mg 05/31/17 17:41 Ativan - PO TID PRN ANXIETY Non-Formulary Medication 1 mg 05/31/17 22:00 Tacrolimus [Prograf] PO BID [facility] Prednisone 30 mg 05/31/17 17:45 Deltasone - PO DAILY [facility] Ursodiol 600 mg 05/31/17 22:00 Actigal - PO BID [facility] ASSESSMENT/PLAN: 31yo M with state Autoimmune hepatitis, PBC, heroin abuse who presented w/ sharp , intermittent RUQ pain. Has Tbili of 24 and signs of liver failure # Acute Liver Failure 2/2 Autoimmune Hepatitis - Patient recently moved from [place], obtained records from medical centers there. Had open liver biopsy in 2014 consistent with auto-immune hepatitis with possible overlying PBC. Had positive DANIEL, +anti-smooth muscle Ab, and +anti- mitochondrial Ab. Was previously taking Ursodiol, Tacrolimus, and Prednisone but stopped taking meds 1 month ago due to insurance issues. Now the acute liver failure is rapidly progressing. Last year Tbili was 5.0. Will continue the stated meds while he is here. Currently MELD 30. Sophia Castillo C. Spoke to Dr Lerner, patient will likely need to be transferred to tertiary care facility, though patient is adamantly refusing. # RUQ Pain - Could be secondary to intrahepatic cholestasis, resolved this AM, but had bouts of pain this afternoon. Will give Toradol 15 Q6H PRN # Schizoaffective Disorder - Continue Lorazepam 1mg TID PRN. Overnight endorsed auditory hallucinations with suicidal commands. Placed on 1:1 with psych consult. Awaiting psych clearance. # Heroine Abuse - Currently COWS 2. Defer standing methadone since cleared by liver. Will refer to inpatient rehab upon discharge. Echo to r/o endocarditis. # Hypokalemia - Resolved now. Can be metabolic side-effect of acute liver failure, replete as necessary. No EKG changes. Mg normal. No diarrhea # Supratherapeutic INR - Due to acute liver failure, still supratherapeutic after 1 dose Vitamin K PO, will give another SQ dose # Normocytic Anemia - Check iron studies, no signs of bleeding # FEN - No IVF, elec wnl, regular diet # PPx - SCDs, supratherapeutic INR, no GI needed # Dispo - D/c tele. Received [place] records from [facility] [employer] [facility] ( cell: [phone]), results as stated above. Patient is adamant that he wants to sign out AMA tomorrow after Psych clearance, to be with his family. He adamantly refuses transfer to tertiary care facility. He was informed about the severity of his liver condition and about his poor prognosis especially if he does not receive appropriate medical care, patient understands and states he will still sign out. He understands the risks, even . Attempted to contact , no response. d/w Dr Danna Gomez MD - PGY1 Internal Medicine Resident Visit type - Emergency Visit Emergency Visit: No - New Patient This patient is new to me today: No - Critical Care Critical Care patient: No - Discharge Referral Referred to [facility] Med P.C.: No
[2017-05-31 09:26] LABS: INR 2.49 (0.82-1.09); PROTHROMBIN TIME (PATIENT) 28.1 SEC (9.98-11.88)
[2017-05-31 09:53] LABS: ALBUMIN 1.7 g/dl (3.4-5.0); ALK PHOS 620 U/L (45-117); ANION GAP 8 (8-16); CALCIUM 7.7 mg/dL (8.5-10.1); CO2 21 mmol/L (21-32); GLUCOSE,RANDOM 86 mg/dL (74-106); PHOSPHOROUS 1.4 mg/dL (2.5-4.9); SGOT/AST 152 U/L (15-37); SGPT/ALT 90 U/L (12-78)
[2017-05-31 10:02] LABS: TOT PROT 6.4 g/dl (6.4-8.2)
[2017-05-31 10:05] LABS: BILIRUBIN,TOTAL 19.4 mg/dL (0.2-1.0)
[2017-05-31] MEDS: KETOROLAC TROMETHAMINE 15 MG/ML VIAL IVPUSH PRN ×2 (15:18→21:52)
[2017-05-31] MEDS ORDERED: NAPH,MB-DB/K PH,MBDB POWDER PACKET PO ONE (16:36)
[2017-05-31] MEDS ORDERED: PHYTONADIONE 10 MG/1 ML AMP SQ ONE (16:37)
--- NOTE | 2017-05-31 16:38 | PN ---
Teaching Attending Note Name of Resident: Juan Carlos Gomez ATTENDING PHYSICIAN STATEMENT I saw and evaluated the patient. I reviewed the resident's note and discussed the case with the resident. I agree with the resident's findings and plan as documented. SUBJECTIVE:pain resolved with pain medication. very upset he can not speak with his . states he was just upset and was "carrying on" that he has no suicidal idealizations or plans to hurt himself. denies Cp, SOB, fever, chills, N/V/C/D, yawning, tremors OBJECTIVE: Last Vital Signs Temp Pulse Resp BP Pulse Ox 98.2 F 63 18 139/80 100 05/31/17 08:46 05/31/17 08:46 05/31/17 08:51 05/31/17 08:46 05/31/17 08:51 General NAD, flat affect HEENT scleral icterus Abdomen soft NT. +Hepatospleenomegaly ASSESSMENT AND PLAN: 31yo M with PMH autoimmune hepatitis and schizoaffective disorder 1. Acute hepatitis- claims autoimmune etiology. MELD 30. Chid Castillo C. will switch urosdiol to 300mg BID. will hold off on starting steroids at this time until other etiologies are r/o. concern for PBC. spoke with GI whom believes may require transfer to tertiary care center if bili does not improve. awaiting records from [place]. pt now states that he has been off medications for several months. quit drinking 7 months ago. autoimmune and hepatitis panel pending. 2. Suicidal idealizations- denies has thoughts or plan to hurt himself. awaiting psych evaluation. 1:1 observation. not allowed to have contact with outside people, no real silverware or cords in the room 3. Continuous heroin abuse- COWS 0. no signs of withdrawal, received methadone x1 last night, but will hold in setting of acute liver failure. will refer to inpatient rehab when medically optimized. 4. Hypokalemia- resolved 5. hypophosphatemia- neutraphos 6. + murmur- in setting of heroin use would check echo to r/o endocarditis 7. Hypercoagable state- improved. additional Vitamin K sq 8. Anemia- no signs of bleeding. iron stuides pending. no indication for txn 9. DVT ppx- SCD. hold pharmacologic.
[2017-05-31] MEDS ORDERED: PHYTONADIONE 5 MG TABLET PO ONE (17:45)
[2017-05-31] MEDS: predniSONE 10 MG TABLET (UD) PO SCH (17:50)
--- NOTE | 2017-05-31 19:19 | PN ---
Progress Note, Physician Chief Complaint: Client endorsed to attending that he has AH last pm of a male voice, that tell him to take his life, last evening, confirmed with RN David. "i have been waiting for you, i am doing better" "i spoke with my family today". "i grew up in a jain family, as a small child visions experiences were part of that". "i no longer want to hurt self or others". "i will attend therapy sessions that accept my insurance". History of Present Illness: patient is a 31 yo AA male wih past history of schizoaffective disorder, IVDA, Heroin use, Acute on Chronic liver failure. Bilirumin is elevated at 24. Client has past psych treatments in [place], at "[facility]". He was in observation units for 24-72 hours at most. Stated he has taken psychotropic meds in past, but he is allergic where his skin breaks out. Maintained on Lorazepam 1mg po TID. - Current Medication List Current Medications: Active Medications Ketorolac Tromethamine (Toradol Injection -) 15 mg IVPUSH Q6H PRN PRN Reason: PAIN Stop: 06/05/17 12:29 Last Admin: 05/31/17 15:18 Dose: 15 mg Lorazepam (Ativan -) 1 mg PO Q8H PRN PRN Reason: ANXIETY Prednisone (Deltasone -) 30 mg PO DAILY MILAGRO Last Admin: 05/31/17 17:50 Dose: 30 mg Tacrolimus (Prograf) 1 mg PO BID MILAGRO Ursodiol (Actigal -) 600 mg PO BID MILAGRO - Objective Vital Signs: Vital Signs Temperature 98.6 F 05/31/17 18:00 Pulse Rate 61 05/31/17 18:00 Respiratory Rate 20 05/31/17 18:00 Blood Pressure 146/80 05/31/17 18:00 O2 Sat by Pulse Oximetry (%) 100 05/31/17 08:51 Labs: CBC, BMP 05/31/17 07:00 05/31/17 07:00 INR, PTT INR 2.49 (0.82-1.09) H 05/31/17 07:00 Problem List - Problems (1) Schizo-affective schizophrenia, chronic condition Code(s): F25.8 - OTHER SCHIZOAFFECTIVE DISORDERS (2) Hallucination, drug-induced Code(s): F19.951 - [facility] PSYCHOACTV SUB USE, UNSP W PSYCH DISORDER W HALLUCIN Assessment/Plan Client is seen in own room, using bathroom with Constant observation staff in place.Returned to see client. Wearing hospital gowns. Client is apropriate in speech, monotonous, some slowness noted. client is slowed in speech, posibly cognitive moris. Endorsed having psycho active seroquel in past. Stated his skin breaks out with it. Will not start antipsychotics at present due to severe liver damage, bilirubin 24. Voice last night is most likely related to withrawls from IVDU, last use of Heroin on 12-14. Client has stepfather in [place] and also with a 2 yr old baby. Plan..Follow up with therapist in community. ......Offered [facility] services, wellness services as substance/mental health counselling service. ......May restart Gabapentin 100mg at night, titrating in the community as his condition allows. ......Spoke with SUREKHA Hernandez on unit,
--- NOTE | 2017-05-31 19:46 | PN ---
Mental Health Exam - Mental Status Exam Alert and Oriented to: Time, Place, Person Cognitive Function: Grossly Intact Patient Appearance: Unkempt, Disheveled Mood: Anxious, Hopeful Affect: Appropriate Patient Behavior: Passive, Guarded, Talkative, Cooperative Speech Pattern: Tangential (monotonous. ) Voice Loudness: Mildly Soft/Quiet, Limited Variation Thought Process: Circumstantial, Goal Oriented Thought Disorder: Bizarre Hallucinations: Denies Suicidal Ideation: Denies, No Plan Homicidal Ideation: Denies, No Plan Insight/Judgement: Poor Sleep: Difficulty falling asleep Appetite: Weight loss Muscle strength/Tone: Mild Hypotonicity Gait/Station: Deferred
[2017-05-31] MEDS ORDERED: ONDANSETRON 4 MG/2 ML VIAL IVPUSH ONE (21:46)
[2017-05-31] MEDS ORDERED: TACROLIMUS 0.5 MG CAPSULE PO SCH (22:00)
[2017-05-31] MEDS: LORazepam 1 MG TABLET PO PRN (23:30)
[2017-06-01] MEDS: URSODIOL 300 MG CAPSULE PO SCH ×2 (00:07→10:53)
[2017-06-01 06:06] LABS: SERUM IRON 50 ug/dL (38-169); TOTAL IRON BINDING CAPACITY 145 ug/dL (250-450); UIBC 95 ug/dL (111-343)
[2017-06-01 08:05] LABS: MCH 29.6 pg (25.7-33.7); MCHC 33.8 g/dl (32.0-35.9); MEAN CELL VOLUME 87.5 fl (80-96); MEAN PLT VOLUME 7.9 fl (7.5-11.1); PLATELET COUNT 212 K/MM3 (134-434); RDW 16.1 % (11.9-15.9); WHITE BLOOD COUNT 4.5 K/mm3 (4.0-10.0)
[2017-06-01 08:32] LABS: INR 1.46 (0.82-1.09); PROTHROMBIN TIME (PATIENT) 16.5 SEC (9.98-11.88)
[2017-06-01 08:34] LABS: ALBUMIN 1.8 g/dl (3.4-5.0); ANION GAP 8 (8-16); CALCIUM 8.4 mg/dL (8.5-10.1); CO2 23 mmol/L (21-32); CREATININE 0.9 mg/dL (0.7-1.3); GLUCOSE,RANDOM 110 mg/dL (74-106); PHOSPHOROUS 2.5 mg/dL (2.5-4.9); SGOT/AST 142 U/L (15-37); SGPT/ALT 89 U/L (12-78)
[2017-06-01 08:50] LABS: ALK PHOS 579 U/L (45-117)
[2017-06-01 08:52] LABS: TOT PROT 6.9 g/dl (6.4-8.2)
[2017-06-01] MEDS ORDERED: TACROLIMUS ANHYDROUS 1 MG CAPSULE PO SCH (10:00)
[2017-06-01 10:32] LABS: BILIRUBIN,TOTAL 21.9 mg/dL (0.2-1.0)
[2017-06-01] MEDS: predniSONE 10 MG TABLET (UD) PO SCH (10:53)
[2017-06-01] MEDS: LORazepam 1 MG TABLET PO PRN (11:03)
--- NOTE | 2017-06-01 13:40 | PN ---
Physical Exam: SUBJECTIVE: Patient seen and examined. He is sitting comfortably in bed and states that is feeling much better since the admission. He denies tremors, hallucinations, problems with sleeping. No overnight events but the pt was on 1: 1 observation. OBJECTIVE: Vital Signs Period Temp Pulse Resp BP Sys/Tomas Pulse Ox Last 24 Hr 98.2 F-98.8 F 61-72 14-20 144-149/74-87 100-100 GENERAL: The patient is awake, alert, and fully oriented, in no acute distress. HEAD: Normal with no signs of trauma. EYES: extraocular movements intact, sclera icteric ENT: moist mucous membranes. NECK: Trachea midline, supple. LUNGS: Breath sounds equal, clear to auscultation bilaterally, no wheezes, no crackles, no accessory muscle use. HEART: Regular rate and rhythm, S1, S2, systolic murmur over second right intercostal space and left sternal border, 2/6, no rub or gallop. ABDOMEN: Soft, nontender, nondistended, normoactive bowel sounds, hepatosplenomegaly EXTREMITIES: no edema. NEUROLOGICAL: Normal speech, no facial asymmetry, gait not observed. PSYCH: Normal mood, normal affect. SKIN: Warm, dry, normal turgor, no rashes or lesions noted Laboratory Results - last 24 hr 05/30/17 05/31/17 06/01/17 08:45 07:00 06:00 WBC 4.5 RBC 3.09 L Hgb 9.1 L Hct 27.1 L MCV 87.5 MCH 29.6 MCHC 33.8 RDW 16.1 H Plt Count 212 MPV 7.9 PT with INR INR Sodium Potassium Chloride Carbon Dioxide Anion Gap BUN Creatinine Creat Clearance w eGFR Random Glucose Calcium Phosphorus Iron 50 TIBC 145 L Iron Saturation 34 Total Bilirubin Direct Bilirubin AST ALT Alkaline Phosphatase Total Protein Albumin Hepatitis Be Antibody Negative Hepatitis Be Antigen Negative 06/01/17 06/01/17 06/01/17 06:00 06:00 06:00 WBC RBC Hgb Hct MCV MCH MCHC RDW Plt Count MPV PT with INR 16.50 H INR 1.46 H D Sodium 136 Potassium 4.2 Chloride 105 Carbon Dioxide 23 Anion Gap 8 BUN 10 D Creatinine 0.9 Creat Clearance w eGFR > 60 Random Glucose 110 H D Calcium 8.4 L Phosphorus 2.5 D Iron TIBC Iron Saturation Total Bilirubin 21.9 H* Direct Bilirubin 18.3 H AST 142 H ALT 89 H Alkaline Phosphatase 579 H Total Protein 6.9 Albumin 1.8 L Hepatitis Be Antibody Hepatitis Be Antigen Active Medications Generic Name Dose Route Start Last Admin Trade Name Freq PRN Reason Stop Dose Admin Ketorolac Tromethamine 15 mg 05/31/17 12:30 05/31/17 21:52 Toradol Injection - IVPUSH 06/05/17 12:29 15 mg Q6H PRN Administration PAIN Lorazepam 1 mg 05/31/17 17:41 06/01/17 11:03 Ativan - PO 1 mg Q8H PRN Administration ANXIETY Prednisone 30 mg 05/31/17 17:45 06/01/17 10:53 Deltasone - PO 30 mg DAILY MILAGRO Administration Tacrolimus 1 mg 06/01/17 10:00 06/01/17 10:53 Prograf PO 1 mg BID MILAGRO Administration Ursodiol 600 mg 05/31/17 22:00 06/01/17 10:53 Actigal - PO 600 mg BID MILAGRO Administration ASSESSMENT/PLAN: 31yo M with PMH of autoimmune hepatitis, PBC, heroin abuse, schizoaffective disorder who presented with RUQ abdominal pain and was found to have elevated T.bili, transaminitis and hypokalemia. Acute Liver Failure due to Autoimmune Hepatitis or PBC. Patient was treated for liver failure in [place]. Biopsy was taken and he was as previously taking Ursodiol, Tacrolimus , and Prednisone but stopped taking meds 1 month ago due to insurance issues. Now the acute liver failure is rapidly progressing. Today his total billirubin is 21.9 that is worse than yesterday. We consulted GI and will follow up recommendations in regards to treatment. His medical condition and prognosis were explained to him over the weekend. tacrolimus, Prednisone and Ursodiol were restarted. Hepatitis panel is pending. RUQ Pain resolved, may be secondary to cholestasis Schizoaffective Disorder Continue Lorazepam 1mg TID PRN. Placed on 1:1 with psych consult. Will DC 1:1 today. Heart murmur f/u ECHO to r/o endocarditis Heroine Abuse no standing methadone due to liver disease Hypokalemia Resolved now Supratherapeutic INR normalizing FEN No IVF, elec wnl, regular diet PPx SCDs Dispo Upon recommendations from GI Problem List - Problems (1) Elevated bilirubin Code(s): R17 - UNSPECIFIED JAUNDICE (2) Hallucination, drug-induced Code(s): F19.951 - [facility]TH PSYCHOACTV SUB USE, UNSP W PSYCH DISORDER W HALLUCIN (3) Hypokalemia Code(s): E87.6 - HYPOKALEMIA (4) Liver failure Code(s): K72.90 - HEPATIC FAILURE, UNSPECIFIED WITHOUT COMA Qualifiers: Liver failure chronicity: unspecified chronicity Hepatic coma status: without hepatic coma Qualified Code(s): K72.90 - Hepatic failure, unspecified without coma (5) Schizo-affective schizophrenia, chronic condition Code(s): F25.8 - OTHER SCHIZOAFFECTIVE DISORDERS (6) Autoimmune hepatitis Code(s): K75.4 - AUTOIMMUNE HEPATITIS (7) Opioid dependence with withdrawal Code(s): F11.23 - OPIOID DEPENDENCE WITH WITHDRAWAL Visit type - Emergency Visit Emergency Visit: Yes ED Registration Date: 05/30/17 Care time: The patient presented to the Emergency Department on the above date and was hospitalized for further evaluation of their emergent condition. - New Patient This patient is new to me today: Yes Date on this admission: 06/01/17 - Critical Care Critical Care patient: No
--- NOTE | 2017-06-01 13:44 | PN ---
Teaching Attending Note Name of Resident: Corinne Allen ATTENDING PHYSICIAN STATEMENT I saw and evaluated the patient. I reviewed the resident's note and discussed the case with the resident. I agree with the resident's findings and plan as documented. SUBJECTIVE:asymptomatic. denies CP, SOB, fever, chills, N/V/C/D OBJECTIVE: Last Vital Signs Temp Pulse Resp BP Pulse Ox 98.2 F 72 14 144/74 100 06/01/17 10:00 06/01/17 10:00 06/01/17 10:00 06/01/17 10:00 06/01/17 09:00 General NAD, flat affect HEENT scleral icterus Abdomen soft NT. +Hepatospleenomegaly ASSESSMENT AND PLAN: 31yo M with PMH autoimmune hepatitis and schizoaffective disorder 1. Acute hepatitis- claims autoimmune etiology. MELD 30. Chid Castillo C. records received from [facility]. has overlap syndrome autoimmune hepatitis with PBC. re- started medications ursoldoiol 600mg BID, pred 30mng, tacrolimus 1mb BID. discussed in detail severity of disease and current situation. how pt should be transferred to liver transplant center. pt agrees but wants to go home and states he will go on his own. explained due to rapid progression of disease it is not advisable and needs to go immediately. explained the increased of mortality and likelihood of if he does not see a specialist immediately 2. Suicidal idealizations- denies has thoughts or plan to hurt himself. psych evaluated. did not comment on clearance from suicide watch. call placed back to psych. 3. Continuous heroin abuse- COWS 0. no signs of withdrawal, refusing inpatient rehab 4. Hypokalemia- resolved 5. hypophosphatemia- 6. + murmur- in setting of heroin use would check echo to r/o endocarditis. echo pending 7. Hypercoagable state- improved. 8. Anemia- no signs of bleeding. iron stuides pending. no indication for txn 9. DVT ppx- SCD. hold pharmacologic. 10. conversed in great detail the severity of his disease and high liklihood of if he does not comply with medications, follow up with doctors and if he continues to abuse EOTH and drugs. verbalized understanding and agreement. will sign out AMA once cleared from psych for suicide watch.
[2017-06-01 15:37] VITALS: BP 152/85; PULSE 71; TEMP 98.6
--- NOTE | 2017-06-01 18:04 | CON.GI ---
Consult Consult Specialty:: GI Reason for Consultation:: Acute Hepatitis - History of Present Illness History of Present Illness: 31` y/o male ex Heroine abuser, on methadone with PMH of PBC and Autoimmun hepatitis was noted to have worsening Liver ezymes since 03/2015. Now his bilirubin is 29. A few months ago, it was 13. He is not compliant ot medications discharged himself against medical advice the last admission. I have reviewed his medical chart from [place] today and has examined him yesterday. Today he is leaving again gains medical advise. He understands that he may of liver failure. I discussed the case with Dr Maldonado yesterday at length. He has subacute hepatic failure and will need to be transfered to a tertiary hospital for further evaluation and management. - History Source History Provided By: Patient, Medical Record - Past Medical History Cardio/Vascular: Yes: HTN Hepatobiliary: Yes: Other (Autoimmune hepatitis Liver failure Primary biliary cirrhosis) Psych: Yes: Addictions - Alcohol/Substance Use Hx Alcohol Use: No - Smoking History Smoking history: Never smoked Have you smoked in the past 12 months: No Home Medications - Allergies Allergies/Adverse Reactions: Allergies Allergy/AdvReac Type Severity Reaction Status Date / Time No Known Allergies Allergy Verified 05/29/17 23:21 - Home Medications Home Medications: Ambulatory Orders Ursodiol 600 mg PO BID 01/29/17 Amlodipine Besylate [Norvasc -] 10 mg PO DAILY 05/31/17 Lamotrigine [Lamotrigine ER] 50 mg PO DAILY 05/31/17 Lisinopril/Hydrochlorothiazide [Lisinopril-Hctz 20-12.5 mg Tab] 1 tab PO DAILY 05/31/17 Lorazepam [Ativan] 1 mg PO TID PRN 05/31/17 Prednisone [Deltasone] 30 mg PO DAILY 05/31/17 Tacrolimus [Prograf] 1 mg PO BID 05/31/17 Physical Exam-GI Vital Signs: Vital Signs Temperature 98.6 F 06/01/17 14:00 Pulse Rate 71 06/01/17 14:00 Respiratory Rate 14 06/01/17 10:00 Blood Pressure 152/85 06/01/17 14:00 O2 Sat by Pulse Oximetry (%) 100 06/01/17 09:00 Constitutional: Yes: Well Nourished Eyes: Yes: Sclera Icterus HENT: Yes: Atraumatic Neck: Yes: Supple Cardiovascular: Yes: Regular Rate and Rhythm Respiratory: Yes: CTA Bilaterally ...Auscultate: Yes: Normoactive Bowel Sounds ...Palpate: Yes: Soft. No: Firm/Rigid, Guarding, Hepatomegaly, Mass, Pulsatile Mass, Splenomegaly, Tenderness Neurological: Yes: Alert, Oriented Labs: CBC, BMP 06/01/17 06:00 06/01/17 06:00 INR, PTT INR 1.46 (0.82-1.09) H D 06/01/17 06:00 Hepatic Panel Total Bilirubin 21.9 mg/dL (0.2-1.0) H* 06/01/17 06:00 Direct Bilirubin 18.3 mg/dL (0.0-0.2) H 06/01/17 06:00 AST 142 U/L (15-37) H 06/01/17 06:00 ALT 89 U/L (12-78) H 06/01/17 06:00 Alkaline Phosphatase 579 U/L (45-117) H 06/01/17 06:00 Albumin 1.8 g/dl (3.4-5.0) L 06/01/17 06:00 Problem List - Problems (1) Acute and subacute hepatic failure without coma Assessment/Plan: R. Continue Ursodiol 300mg bid Prednisone 40mg daily serial LFTS p[atient leaving against medical advise Code(s): K72.00 - ACUTE AND SUBACUTE HEPATIC FAILURE WITHOUT COMA
--- NOTE | 2017-06-02 01:45 | EKG ---
Test Reason : Blood Pressure : / mmHG Vent. Rate : 065 BPM Atrial Rate : 065 BPM P-R Int : 186 ms QRS Dur : 118 ms QT Int : 496 ms P-R-T Axes : 070 -83 051 degrees QTc Int : 515 ms NORMAL SINUS RHYTHM INCOMPLETE RIGHT BUNDLE BRANCH BLOCK LEFT ANTERIOR FASCICULAR BLOCK SEPTAL INFARCT , AGE UNDETERMINED PROLONGED QT ABNORMAL ECG WHEN COMPARED WITH ECG OF 29-JAN-2017 17:48, INCOMPLETE RIGHT BUNDLE BRANCH BLOCK IS NOW PRESENT SEPTAL INFARCT IS NOW PRESENT Confirmed by MARIA LUISA ONEILL MD ([id number]) on 06/02/2017 1:45:16 AM Referred By: Confirmed By:MARIA LUISA ONEILL MD
--- NOTE | 2017-06-04 16:55 | DS ---
Physical Exam: SUBJECTIVE: Patient seen and examined. he is feeling much better today, no complaints. OBJECTIVE: PHYSICAL EXAM GENERAL: The patient is awake, alert, and fully oriented, in no acute distress. HEAD: Normal with no signs of trauma. EYES: PERRL, extraocular movements intact, sclera icteric. ENT: Ears normal, nares patent, oropharynx clear without exudates, moist mucous membranes. NECK: Trachea midline, full range of motion, supple. LUNGS: Breath sounds equal, clear to auscultation bilaterally, no wheezes, no crackles, no accessory muscle use. HEART: Regular rate and rhythm, S1, S2 without murmur, rub or gallop. ABDOMEN: Soft, nontender, nondistended, normoactive bowel sounds, hepatosplenomegaly. EXTREMITIES: 2+ pulses, warm, well-perfused, no edema. NEUROLOGICAL: Cranial nerves II through XII grossly intact. Normal speech, no facial asymmetr, gait not observed. PSYCH: Normal mood, normal affect. SKIN: Warm, dry, normal turgor, no rashes or lesions noted. LABS HOSPITAL COURSE: Date of Admission:05/30/17 Date of Discharge: 06/04/17 Minutes to complete discharge: 40 Discharge Summary Reason For Visit: HYPOKALEMIA LIVER FAILURE HIGH BILIRUBIN Hospital Course: 31yo M with PMH of autoimmune hepatitis, PBC, heroin abuse, schizoaffective disorder who presented with RUQ abdominal pain and was found to have elevated T.bili, transaminitis and hypokalemia. Hospital course; Acute Liver Failure;due to Autoimmune Hepatitis or PBC. MELD 30. Patient was treated for liver failure in [place]. Biopsy was taken and he was as previously taking Ursodiol, Tacrolimus, and Prednisone but stopped taking meds 1 month ago due to insurance issues. Now the acute liver failure is rapidly progressing. During the hospitalization his bilirubin was elevated to very high levels. We consulted GI and will follow up recommendations in regards to treatment. His medical condition and prognosis were explained to him over the weekend. tacrolimus, Prednisone and Ursodiol were restarted. Hepatitis panel was ordered. He wasinformed that he should be transferred to liver transplant center. He agreed but wanted to go home and stated he will go on his own. He was explained the increased of mortality and likelihood of if he does not see a specialist immediately RUQ Pain-resolved, may be secondary to cholestasis Schizoaffective Disorder- Continued Lorazepam 1mg TID PRN. Placed on 1:1. Psychiatry was consulted and cleared the pt. Heart murmur- ECHO was ordered to r/o endocarditis Heroine Abuse-no standing methadone due to liver disease Hypokalemia-Resolved now Supratherapeutic INR normalizing The pt left AMA. Condition: Guarded - Instructions Disposition: AGAINST MEDICAL ADVICE - Home Medications Comprehensive Discharge Medication List: Ambulatory Orders Ursodiol 600 mg PO BID 01/29/17 Amlodipine Besylate [Norvasc -] 10 mg PO DAILY 05/31/17 Lamotrigine [Lamotrigine ER] 50 mg PO DAILY 05/31/17 Lisinopril/Hydrochlorothiazide [Lisinopril-Hctz 20-12.5 mg Tab] 1 tab PO DAILY 05/31/17 Lorazepam [Ativan] 1 mg PO TID PRN 05/31/17 Prednisone [Deltasone] 30 mg PO DAILY 05/31/17 Tacrolimus [Prograf] 1 mg PO BID 05/31/17 Problem List - Problems (1) Elevated bilirubin Code(s): R17 - UNSPECIFIED JAUNDICE (2) Hallucination, drug-induced Code(s): F19.951 - OTH PSYCHOACTV SUB USE, UNSP W PSYCH DISORDER W HALLUCIN (3) Hypokalemia Code(s): E87.6 - HYPOKALEMIA (4) Liver failure Code(s): K72.90 - HEPATIC FAILURE, UNSPECIFIED WITHOUT COMA Qualifiers: Liver failure chronicity: unspecified chronicity Hepatic coma status: without hepatic coma Qualified Code(s): K72.90 - Hepatic failure, unspecified without coma (5) Schizo-affective schizophrenia, chronic condition Code(s): F25.8 - OTHER SCHIZOAFFECTIVE DISORDERS (6) Autoimmune hepatitis Code(s): K75.4 - AUTOIMMUNE HEPATITIS (7) Opioid dependence with withdrawal Code(s): F11.23 - OPIOID DEPENDENCE WITH WITHDRAWAL This patient is new to me today: No Emergency Visit: Yes ED Registration Date: 05/30/17 Care time: The patient presented to the Emergency Department on the above date and was hospitalized for further evaluation of their emergent condition. Critical Care patient: No - Discharge Referral [facility]erred to [facility] Med P.C.: No
== END 2017-06-01 18:28 | disposition left against medical advice (07) ==
LOC: JER 22:52 → JERBED 05-30 04:35 → J4W 05-30 11:34
PROVIDERS: ADMIT Internal Medicine; ATTEND Internal Medicine
DX: K75.4 Autoimmune hepatitis (principal); K72.00 Acute and subacute hepatic failure without coma; E87.6 Hypokalemia; I10 Essential (primary) hypertension; D64.9 Anemia, unspecified; F11.10 Opioid abuse, uncomplicated; R45.851 Suicidal ideations; E83.39 Other disorders of phosphorus metabolism; D68.59 Other primary thrombophilia; F25.8 Other schizoaffective disorders; R74.0 Nonspecific elevation of levels of transaminase and lactic acid dehydrogenase [LDH]; R01.1 Cardiac murmur, unspecified; R79.1 Abnormal coagulation profile; K83.1 Obstruction of bile duct; K76.0 Fatty (change of) liver, not elsewhere classified
CPT/HCPCS: 36415; 74176; 76705-TC; 80048; 80053; 80074; 80307; 81003; 81015; 82105; 82140; 82248; 82550; 82728; 83010; 83540; 83550; 83615; 83690; 83735; 84100; 85025; 85027; 85610; 85730; 86707; 86790; 87086; 87350; 87389; 87522; 93005; 93010; 93306-TC; 99285-25